=== PATIENT | male | born 1960 | race Hispanic/Latino ===

== ENCOUNTER 2017-07-19 14:19 | Emergency (ER) | payer MEDICAID ==
[2017-07-19 14:52] VITALS: BP 120/81; PULSE 88; RESP 20; TEMP 98.6; O2SAT 100
--- NOTE | 2017-07-19 16:14 | C.PDOC ---
History Of Present Illness The patient is a 57yo male, presents to the ED for evaluation of right upper arm pain, present for the past 2-3 weeks. Patient states he wakes up with the pain and feels as if his hand " is in a claw." He also reports numbness in his digits which dissipate as the day goes on. Patient also reports the pain radiates to his right neck and down his right forearm. He denies any history of neck injury or trauma. Pt reports he has been taking Ibuprofen, aleve for his pain with no relief. He denies any PCP visit for evaluation of this pain. Pt offers no other medical complaints. Time Seen by Provider: 07/19/17 15:19 Chief Complaint (Nursing): Upper Extremity Problem/Injury History Per: Patient History/Exam Limitations: no limitations Onset/Duration Of Symptoms: Persistent Current Symptoms Are (Timing): Still Present Past Medical History Reviewed: Historical Data, Nursing Documentation, Vital Signs Vital Signs: Last Vital Signs Temp 98.6 F 07/19/17 14:47 Pulse 88 07/19/17 14:47 Resp 20 07/19/17 14:47 BP 120/81 07/19/17 14:47 Pulse Ox 100 07/19/17 16:18 - Medical History PMH: Anxiety, Depression, [facility] Post Traumatic Stress Disorder Denies: Chronic Kidney Disease Surgical History: Tonsillectomy Family History: States: No Known Family Hx, Unknown Family Hx - Social History Hx Alcohol Use: No Hx Substance Use: No - Immunization History Hx Tetanus Toxoid Vaccination: No Hx Influenza Vaccination: No Hx Pneumococcal Vaccination: No Review Of Systems Musculoskeletal: Positive for: Neck Pain (right sided), Arm Pain (right sided) Neurological: Positive for: Numbness. Negative for: Headache Physical Exam - Physical Exam Appears: Non-toxic, No Acute Distress Head: Atraumatic, Normacephalic Eye(s): bilateral: Normal Inspection Neck: Decreased ROM (decreased ROM when turning his neck to the right), No Midline Cervical Tenderness Cardiovascular: Rhythm Regular Respiratory: Normal Breath Sounds Back: Normal Inspection Extremity: Normal ROM (Full ROM at shoulder, elbow, wrist and digits.), Tenderness (mild right trapezius tenderness, right lateral arm tenderness.), Capillary Refill (< 2 seconds, nerovascular sensations intact), No Deformity, No Swelling Neurological/Psych: Oriented x3 ED Course And Treatment O2 Sat by Pulse Oximetry: 100 (RA) Pulse Ox Interpretation: Normal Medical Decision Making Medical Decision Making: Impression: 57y/o male with right arm and neck pain; likely cervical radiculopathy Plan: -- Patient to be discharged home w/ NSAID's and muscle relaxers. Instructed to follow up in 1-2 days. Disposition Counseled Patient/Family Regarding: Diagnosis, Need For Followup, Rx Given - Disposition Referrals: Lesly Freeman MD [Medical Doctor] - Conner Jenkins MD [Staff Provider] - Disposition: HOME/ ROUTINE Disposition Time: 16:20 Condition: STABLE Additional Instructions: Apply warm or cold compresses to neck area (whichever feels best) several times a day. Take medicaitn as prescribed. Follow up with your medical doctor and with Dr Jenkins, neurologist. Prescriptions: Cyclobenzaprine [Cyclobenzaprine HCl] 10 mg PO Q8 #9 tab Ibuprofen [Motrin] 600 mg PO TID #30 tab Instructions: Cervical Radiculopathy (ED) Forms: [facility] ([place]), General Discharge Instructions - Clinical Impression Clinical Impression: Cervical radiculopathy
== END 2017-07-19 16:29 | disposition home or self-care (01) ==
LOC: C.ER 14:19
DX: M54.12 Radiculopathy, cervical region (principal)